=== PATIENT | female | born 1970 | race African-American/Black ===

== ENCOUNTER 2025-07-11 13:32 | Outpatient (CLI) | payer BC, SELFPAY ==
--- OUTSIDE RECORDS SUMMARY | 2025-07-11 13:34 | XMS_ITS | Clinical Summary ---
Author Organization [facility] Address [address] [place] [id number] Care Team Providers Care Supervisor Metal Furniture Assembly Name Role Phone Park Pool PA-C Primary Care Provider + [phone] Allergies Active Allergy Reactions Criticality Noted Date Comments Sulfamethoxazole-Trimet hoprim Other (See Comments) Low 09/11/2019 Shaking/Tremors Medications atorvastatin (LIPITOR) 20 mg tablet Take 20 mg by mouth. 0 Active traZODone (DESYREL) 50 mg tablet Take 50 mg by mouth daily at bedtime. 0 Active dulaglutide (Trulicity) 0.75 mg/0.5 mL injection INJECT 0.5 ML UNDER THE SKIN WEEKLY 1 Active losartan (COZAAR) 100 mg tablet Take 100 mg by mouth daily. 1 Active metFORMIN (GLUCOPHAGE) 500 mg tablet TAKE 1 TABLET(500 MG) BY MOUTH TWICE DAILY WITH MEALS 1 Active cyclobenzaprine (FLEXERIL) 5 mg Tablet Take 5 mg by mouth. 3 Active ergocalciferol (VITAMIN D2) 50,000 unit capsule TAKE 1 CAPSULE BY MOUTH 1 TIME A WEEK 3 Active fluticasone propionate (FLONASE) 50 mcg/spray [place], Suspension nasal inhaler Administer in each nostril daily. 2 Active omeprazole (PriLOSEC) 20 mg Capsule, Delayed Release(E.C.) Take 20 mg by mouth daily. 3 Active Active Problems Problem Noted Date Diagnosed Date Sciatica of right side 07/31/2023 Overview (10/03/2023): Last Assessment & Plan: History of sciatica Toradol 30 mg IM given today 40 mg Kenalog IM given today Flexeril as directed Naproxen as directed Ice, heat, rest Follow up with PCP if worsening or persistent Generalized anxiety disorder 10/01/2021 Overview (10/03/2023): Last Assessment & Plan: Chronic. Stable without medication. Continue to work on coping strategies. Class 2 severe obesity due t o excess calories with serious comorbidity and body mass index (BMI) of 36.0 to 36.9 in adult 12/16/2019 Overview (10/03/2023): Last Assessment & Plan: Chronic. Uncontrolled. BMI abnormal. Educated patient on healthy diet/exercise plan. Exercise 30 min at least 5 days per week of moderate intensity. Diet: good, healthy protein (eggs, nuts, peanut butter, chicken, fish, turkey, less pork/beef), lots of vegetables, less carbohydrates and less sugar. DM w/o complication type II 11/17/2016 Overview (10/03/2023): Last Assessment & Plan: Chronic. Controlled. Continue Trulicity and metformin Esophageal reflux 11/16/2016 Overview (10/03/2023): Last Assessment & Plan: Chronic. Controlled. Continue omeprazole, script sent today Insomnia 11/16/2016 Overview (10/03/2023): Last Assessment & Plan: Chronic. Stable. Continue trazodone Other allergic rhinitis 11/16/2016 Overview (10/03/2023): Last Assessment & Plan: Uncontrolled. Patient is having more congestion. Patient would like to see ENT Benign essential hypertension 05/04/2016 Overview (10/03/2023): Last Assessment & Plan: Chronic. Controlled. Continue losartan Mixed hyperlipidemia 05/04/2016 Overview (10/03/2023): Last Assessment & Plan: Chronic. Stable. Continue atorvastatin Vitamin D deficiency 05/04/2016 Overview (10/03/2023): Last Assessment & Plan: Chronic. Controlled. Continue vitamin-D supplement Immunizations Immunization Administration Dates Next Due INFLUENZA VACCINE QUADRIVALENT 6 MOS UP PF IM ,08/23/2022 Family History Medical History Relation Name Comments Diabetes Brother Diabetes Mother High Cholesterol Mother Hypertension Mother Stroke Mother Breast Cancer Sister Diabetes Sister Relation Name Status Comments Brother Mother Sister Social History Tobacco Use Types Packs/Day Years Used Date Smoking Tobacco: Never Tobacco Cessation:Counseling Given: Not Answered Alcohol Use Standard Drinks/Week Comments Not Currently 0 (1 standard drink = 0.6 oz pur e alcohol) Comments No Sex and Gender Information Value Date Recorded Sex Assigned at Not on file Legal Sex Female 7:42 AM CDT Gender Identity Not on file Sexual Orientation Not on file Last Filed Vital Signs Vital Sign Reading Time Taken Comments Blood Pressure 142/90 10/03/2023 10:37 AM RECONCILIATION SPECIALIST Pulse 89 10/03/2023 10:37 AM RECONCILIATION SPECIALIST Temperature 36.9 C (98.4 F) 10/03/2023 10:37 AM RECONCILIATION SPECIALIST Respiratory Rate 20 06/24/2021 10:40 AM CDT Oxygen Saturation 98% 10/03/2023 10:37 AM RECONCILIATION SPECIALIST Inhaled Oxygen Concentration - - Weight 93.2 kg (205 lb 6 oz) 10/03/2023 10:37 AM RECONCILIATION SPECIALIST Height 162.6 cm (5' 4) 10/03/2023 10:37 AM RECONCILIATION SPECIALIST Body Mass Index 35.25 10/03/2023 10:37 AM RECONCILIATION SPECIALIST Plan of Treatment Health Maintenance Due Date Last Done Comments DIABETES ANNUAL RETINAL EXAM 1987 DIABETES MICROALBUMIN ANNUAL SCREEN 1987 LDL CHOLESTEROL ANNUAL 1987 HEPATITIS B VACCINES (1 of 3 - 19+ 3-dose series) 1988 FIT-DNA Q 3 years 2014 FIT/FOBT Q 1 year 2014 Flex Sig/CT Colonography Q 5 years 2014 DTAP/TDAP/TD VACCINES (2 - T d or Tdap) 01/28/2023 01/28/2013, 11/27/2003 DIABETES HBA1C Q 6 MONTHS 06/09/2023 12/10/2022 DIABETES ANNUAL FOOT EXAM 01/16/2024 01/16/2023 BREAST CANCER SCREENING 07/04/2024 07/04/20, 07/04/2023, 06/30/2022, Additional history exists COVID-19 Vaccine (2023-2 5 season) 2024 01/18/2021, 12/28/2020 INFLUENZA VACCINE (#1) 2025 , 08/23/2022, 08/16/2021, Additional history exists COLORECTAL SCREENING 04/12/2031 04/12/2021, 04/12/20 Colorectal Cancer Screening 04/12/2031 ZOSTER VACCINE Completed 04/12/2022, 01/10/2022 Insurance [facility] BLUE ACCESS CHOICE [facility] BLUE ACCESS CHOICE Care Teams Supervisor Metal Furniture Assembly Relationship Specialty Start Date End Date Park Pool PA-C [address] [place] [address] PCP - General Physician Marketing Outreach Coordinator 04/14/20
--- OUTSIDE RECORDS SUMMARY | 2025-07-11 13:34 | XMS_ITS | Encounter Summary ---
Author Organization [facility] Address [address] [place] [address] Care Team Providers Care Neurosurgery Spine Physician Name Role Phone Park Pool Primary Care Provider [phone] Encounter Details Date Type Department Care Team (Late st Contact Info) Description 04/06/2021 Prep for Procedure [facility] [place], [place] [id number] Da Shannon MD [address] [phone] Social History Tobacco Use Types Packs/Day Years Used Date Smoking Tobacco: Never Smokeless Tobacco: Never Alcohol Use Standard Drinks/Week Comments Never 0 (1 standard drink = 0.6 oz pur e alcohol) Comments Unknown Sex and Gender Information Value Date Recorded Sex Assigned at Not on file Legal Sex Female 7:26 PM CDT Gender Identity Not on file Sexual Orientation Not on file COVID-19 Exposure Response Date Recorded In the last month, have you been in contact with someone who was confirmed or suspected to have Coronavirus / COVID-19? No / Unsure 04/06/2021 10:39 AM CDT documented as of this encounter Plan of Treatment Not on file documented as of this encounter Results * PRE-SURGICAL/PRE-PROCEDURE CORONAVIRUS (COVID 19) (04/09/2021 9:20 AM CDT) CORONAVIRUS SARS COV 2 PCR (RESP) NOT DETECTED NOT DETECTED 04/10/2021 7:41 PM CDT [facility] Comment: A Not Detected (negative) test result for this test means that SARS- CoV-2 RNA was not present in the specimen above the limit of detection. A negative result does not rule out the possibility of COVID-19 and should not be used as the sole basis for treatment or patient management decisions. If COVID-19 is still suspected, based on exposure history together with other clinical findings, re-testing should be considered in consultation with public health authorities. Laboratory test results should always be considered in the context of clinical observations and epidemiological data in making a final diagnosis and patient management decisions. Please review the Fact Sheets and FDA authorized labeling available for health care providers and patients using the following websites: [email or web address]/fact- sheet.html [email or web address]/Patients/ Quest[employer]D/fact-sheet.html This test has been authorized by the FDA under an Emergency Use Authorization (EUA) for use by authorized laboratories. Due to the current public health emergency, [facility] is receiving a high volume of samples from a wide variety of swabs and media for COVID-19 testing. In order to serve patients during this public health crisis, samples from appropriate clinical sources are being tested. Negative test results derived from specimens received in non-commercially manufactured viral collection and transport media, or in media and sample collection kits not yet authorized by FDA for COVID-19 testing should be cautiously evaluated and the patient potentially subjected to extra precautions such as additional clinical monitoring, including collection of an additional specimen. Methodology: Nucleic Acid Amplification Test (NAAT) includes RT-PCR or TMA Additional information about COVID-19 can be found at the [facility] website: [email or web address]. Test performed at [facility] [address] [place] [address] Director: NILS CONTE DO,MPH FIRST TEST UNKNOWN 04/09/2021 11:31 AM CDT [facility] EMPLOYED IN HEALTHCARE NO 04/09/2021 11:31 AM CDT [facility] SYMPTOMATIC DEFINED BY CDC UNKNOWN 04/09/2021 11:31 AM CDT [facility] DATE OF SYMPTOM ONSET =FASTING UNKNOWN 04/09/2021 12:30 PM CDT [facility] HOSPITALIZATION STATUS NO 04/09/2021 11:31 AM CDT [facility] PATIENT IN ICU NO 04/09/2021 11:31 AM CDT [facility] RESIDENT OF REPLACED BY [facility] NO 04/09/2021 11:31 AM CDT [facility] UNKNOWN 04/09/2021 11:31 AM CDT [facility] PATIENT'S RACE BLACK OR 04/09/2021 11:31 AM CDT [facility] ETHNICITY NONHISPANIC 04/09/2021 11:31 AM CDT [facility] SOURCE (QST) NASOPHARYNGEAL SWAB 04/09/2021 11:31 AM CDT [facility] NASOPHARYNGEAL SWAB / Unknown 04/09/2021 9:20 AM CDT us Ana Welch MD MICROBIOLOGY - GENERAL ORDERABLE S Final Result [facility] [address] [place] [address], [place] [phone] [facility] [id number] [place] [id number], documented in this encounter Visit Diagnoses Diagnosis Colon cancer screening- Primary Special screening for malignant neoplasms, colon documented in this encounter Additional Health Concerns Infection Onset Date Last Indicated Resolved Time COVID-19 Rule Out 04/09/2021 04/09/2021 04/10/2021 7:41 PM CDT documented as of this encounter Care Teams Neurosurgery Spine Physician Relationship Specialty Start Date End Date Park Pool PA [address] [place] [address] PCP - General 01/13/16 documented as of this encounter
--- OUTSIDE RECORDS SUMMARY | 2025-07-11 13:34 | XMS_ITS | Clinical Summary ---
Author Organization [facility] Address [address] [place] [address] Care Team Providers Care Non Acoustic Operator Name Role Phone Park Pool Primary Care Provider [phone] Allergies Active Allergy Reactions Criticality Noted Date Comments Sulfamethoxazole-Trimethoprim Shakiness 2020 Medications atorvastatin 20 MG tablet Take 2 tablets (40 mg total) by mouth. 0 Active traZODone 50 MG tablet Take 1 tablet (50 mg total) by mouth. 0 Active vitamin D3, cholecalciferol , 75 MCG (3000 UT) Tab tablet Take 5,000 Units by mouth daily. Active losartan 100 MG tablet Take 1 tablet (100 mg total) by mouth daily. Active omeprazole EC 20 MG tablet Take 1 tablet (20 mg total) by mouth daily. Active metFORMIN 500 MG tablet Take 1 tablet (500 mg total) by mouth 2 (two) times daily with meals. Active TRULICITY 0.75 MG/0.5ML injection ADMINISTER 0.75 MG UNDER THE SKIN WEEKLY Active naproxen (NAPROSYN) 500 MG tablet Take 1 tablet (500 mg total) by mouth. 3 Active Active Problems Problem Noted Date Diagnosed Date Lumbar radiculopathy 11/08/2023 Family History Medical History Relation Comments Diabetes Brother Hypertension Brother Diabetes Daughter Hypertension Daughter Diabetes Mother Hyperlipidemia Mother Hypertension Mother Stroke Mother Cancer Sister Relation Status Comments Brother Daughter Father Other Mother Alive Sister Social History Tobacco Use Types Packs/Day Years Used Date Smoking Tobacco: Never Smokeless Tobacco: Never Tobacco Cessation:Counseling Given: Not Answered Alcohol Use Standard Drinks/Week Comments Never 0 (1 standard drink = 0.6 oz pur e alcohol) Comments No Sex and Gender Information Value Date Recorded Sex Assigned at Not on file Legal Sex Female 7:26 PM CDT Gender Identity Not on file Sexual Orientation Not on file Last Filed Vital Signs Vital Sign Reading Time Taken Comments Blood Pressure 165/99 11/28/2023 4:08 PM OUTBOUND SUPERVISOR Pulse 92 11/28/2023 4:08 PM OUTBOUND SUPERVISOR Temperature 36.1 C (97 F) 11/28/2023 3:38 PM OUTBOUND SUPERVISOR Respiratory Rate 18 11/28/2023 4:08 PM OUTBOUND SUPERVISOR Oxygen Saturation 100% 11/28/2023 4:08 PM OUTBOUND SUPERVISOR Inhaled Oxygen Concentration - - Weight 93.4 kg (206 lb) 11/28/2023 3:38 PM OUTBOUND SUPERVISOR Height 162.6 cm (5' 4) 11/28/2023 3:38 PM OUTBOUND SUPERVISOR Body Mass Index 35.36 11/28/2023 3:38 PM OUTBOUND SUPERVISOR Plan of Treatment Health Maintenance Due Date Last Done Comments Annual Physical 1972 Hepatitis C 1987 Hepatitis B Vaccines (1 of 3 - 19+ 3-dose series) 1988 Mammogram Screening 2009 DTaP, Tdap and Td Vaccines ( 2 - Td or Tdap) 01/28/2023 01/28/2013, 11/27/2003 COVID-19 Vaccine (3 - 2023-2 5 season) 2024 01/18/2021, 12/28/2020 Colorectal Cancer Screening Colonoscopy (10 Years) 04/12/2031 04/12/2021, 04/12/2021 Zoster Vaccines Completed 04/12/2022, 01/10/2022 Pneumococcal Vaccine: 50+ Years Completed 01/16/2023, 12/14/2020 Meningococcal B Vaccine Aged Out No l onger eligible based on patient's age to complete this topic Meningococcal Vaccine Aged Out No tracy ryan eligible based on patient's age to complete this topic RSV Immunizations Under 20 Months Aged Out No longer eligible b ased on patient's age to complete this topic Medical Devices Implanted Type Area Lining Machine Operator Device Identifier Shelf Expiration Date Model / Serial / Lot Bilateral Knees Procedures Procedure Name Priority Date/Time Associated Diagnosis Comments COLONOSCOPY Routine 04/12/2021 11:25 AM CDT from Last 3 Months or Most Recently Relevant to Health Maintenance Insurance [employer] Care Teams Non Acoustic Operator Relationship Specialty Start Date End Date Park Pool PA [address] [facility] [place] [phone] PCP - General 01/13/16
--- OUTSIDE RECORDS SUMMARY | 2025-07-11 13:35 | XMS_ITS | Clinical Summary ---
Author Organization [facility] Address [address] [place] [address] Care Team Providers Care Applied Computer Science Professor Name Role Phone Park Pool Primary Care Provider [phone] Dex Wooten MD Unavailable [phone] Allergies Active Allergy Reactions Criticality Noted Date Comments Sulfamethoxazole-Trimet hoprim Other (See comments) Low 09/11/2019 Shaking/Tremors Medications omega-3 fatty acids-fish oil 300-1,000 mg capsule 1 capsule (1,000 mg total) daily Active blood-glucose meter miscIndications:Ty pe 2 diabetes mellitus without complication, without long-term current use of insulin (HCC) Testing BID. New DX: DM. Testing BID due to hyperglycemia and hypoglycemia 1 each 12/16/19 Active blood glucose diagnostic (glucose blood) stripIndications:T ype 2 diabetes mellitus without complication, without long-term current use of insulin (HCC) Testing BID. Testing due to hyperglycemia and hypoglycemia. 100 each 12/16/19 20 Active lancets miscIndications:Ty pe 2 diabetes mellitus without complication, without long-term current use of insulin (HCC) Testing BID. Testing due to hyperglycemia and hypoglycemia. 100 each 12/16/19 20 Active alcohol swabs pads, medicatedIndicatio ns:Type 2 diabetes mellitus without complication, without long-term current use of insulin (HCC) Testing BID. Testing due to hyperglycemia and hypoglycemia. 100 each 01/10/20 22 Active traZODone (DESYREL) 50 mg tabletIndications: Primary insomnia Take 1 tablet (50 mg total) by mouth nightly 90 tablet 1 01/10/20 22 Active omeprazole OTC (PriLOSEC OTC) 20 mg EC tabletIndications: Gastroesophageal reflux disease without esophagitis Take 1 tablet (20 mg total) by mouth daily 90 tablet 1 01/10/20 22 Active ibuprofen (ADVIL,MOTRIN) 600 mg tablet Take 1 tablet (600 mg total) by mouth 3 (three) times a day 21 tablet 01/16/20 23 Active fluticasone propionate (FLONASE) 50 mcg/actuation nasal sprayIndications:E TD (Eustachian tube dysfunction), bilateral,Acute non-recurrent maxillary sinusitis Administer 2 sprays into each nostril daily 16 g 3 12/15/19 24 Active atorvastatin (LIPITOR) 40 mg tabletIndications: Mixed hyperlipidemia Take 1 tablet (40 mg total) by mouth daily 90 tablet 3 01/30/20 25 Active losartan (COZAAR) 100 mg tabletIndications: Benign essential hypertension TAKE 1 TABLET(100 MG) BY MOUTH DAILY 90 tablet 01/31/20 25 Active ergocalciferol (VITAMIN D) 50,000 unit capsuleIndications :Vitamin D deficiency TAKE 1 CAPSULE BY MOUTH 1 TIME A WEEK 12 capsule 3 02/25/20 25 Active semaglutide (Ozempic) 1 mg/dose (4 mg/3 mL) pen injector injectionIndicatio ns:Type 2 diabetes mellitus without complication, without long-term current use of insulin (HCC) INJECT 1MG UNDER THE SKIN ONCE WEEKLY 9 mL 1 03/15/20 25 Active amLODIPine (NORVASC) 5 mg tabletIndications: Benign essential hypertension TAKE 1 TABLET(5 MG) BY MOUTH DAILY 100 tablet 1 03/15/20 25 Active Active Problems Problem Noted Date Diagnosed Date Generalized anxiety disorder 10/01/2021 Assessment & Plan (01/29/2024 1:28 PM INTERNET MARKETING ANALYST): Stable, no meds at this time, using an anxiety apps to help with symptoms Assessment & Plan (01/16/2023 9:18 AM INTERNET MARKETING ANALYST): Chronic. Stable without medication. Continue to work on coping strategies. Assessment & Plan (01/10/2022 8:04 AM INTERNET MARKETING ANALYST): Stable, no meds at this time Assessment & Plan (10/01/2021 8:49 AM CDT): New issue: Discuss treatment options with patient. Patient was to continue her trazodone for good sleep. Sleeping well helps with her anxiety. Paperwork filled out for work to continue working from home to help with her anxiety Class 2 severe obesity due t o excess calories with serious comorbidity and body mass index (BMI) of 36.0 to 36.9 in adult 12/16/2019 Assessment & Plan (01/29/2025 11:36 AM INTERNET MARKETING ANALYST): Educated patient on healthy diet/exercise plan. Exercise 150min-300min per week of moderate intensity. Diet: good, healthy protein (eggs, nuts, peanut butter, chicken, fish, turkey, less pork/beef), lots of vegetables, less carbohydrates and less sugar. Uncontrolled Assessment & Plan (05/06/2024 7:57 AM CDT): Educated patient on healthy diet/exercise plan. Exercise 150min-300min per week of moderate intensity. Diet: good, healthy protein (eggs, nuts, peanut butter, chicken, fish, turkey, less pork/beef), lots of vegetables, less carbohydrates and less sugar. Assessment & Plan (04/03/2024 11:25 AM CDT): Educated patient on healthy diet/exercise plan. Exercise 150min-300min per week of moderate intensity. Diet: good, healthy protein (eggs, nuts, peanut butter, chicken, fish, turkey, less pork/beef), lots of vegetables, less carbohydrates and less sugar. Assessment & Plan (01/29/2024 1:28 PM INTERNET MARKETING ANALYST): Uncontrolled: Goal of BMI is less than 30 Educated patient on healthy diet/exercise plan. Exercise 150min-300min per week of moderate intensity. Diet: good, healthy protein (eggs, nuts, peanut butter, chicken, fish, turkey, less pork/beef), lots of vegetables, less carbohydrates and less sugar. Assessment & Plan (01/16/2023 9:18 AM INTERNET MARKETING ANALYST): Chronic. Uncontrolled. BMI abnormal. Educated patient on healthy diet/exercise plan. Exercise 30 min at least 5 days per week of moderate intensity. Diet: good, healthy protein (eggs, nuts, peanut butter, chicken, fish, turkey, less pork/beef), lots of vegetables, less carbohydrates and less sugar. Assessment & Plan (01/10/2022 8:04 AM INTERNET MARKETING ANALYST): Uncontrolled. Goal of BMI is less than 30 Patient has joined weight watchers Educated patient on healthy diet/exercise plan. Exercise 150min-300min per week of moderate intensity. Diet: good, healthy protein (eggs, nuts, peanut butter, chicken, fish, turkey, less pork/beef), lots of vegetables, less carbohydrates and less sugar. Assessment & Plan (12/14/2020 11:09 AM INTERNET MARKETING ANALYST): Educated patient on healthy diet/exercise plan. Exercise 150min-300min per week of moderate intensity. Diet: good, healthy protein (eggs, nuts, peanut butter, chicken, fish, turkey, less pork/beef), lots of vegetables, less carbohydrates and less sugar. Assessment & Plan (08/28/2020 8:08 AM CDT): Educated patient on healthy diet/exercise plan. Exercise 150min-300min per week of moderate intensity. Diet: good, healthy protein (eggs, nuts, peanut butter, chicken, fish, turkey, less pork/beef), lots of vegetables, less carbohydrates and less sugar. Assessment & Plan (05/22/2020 2:53 PM CDT): Educated patient on healthy diet/exercise plan. Exercise 150min-300min per week of moderate intensity. Diet: good, healthy protein (eggs, nuts, peanut butter, chicken, fish, turkey, less pork/beef), lots of vegetables, less carbohydrates and less sugar. Assessment & Plan (12/16/2019 8:10 AM INTERNET MARKETING ANALYST): Educated patient on healthy diet/exercise plan. Exercise 150min-300min per week of moderate intensity. Diet: good, healthy protein (eggs, nuts, peanut butter, chicken, fish, turkey, less pork/beef), lots of vegetables, less carbohydrates and less sugar. Health maintenance examination 12/11/2019 Overview (01/31/2025): PMH: 01/29/24 Last pap: 12/16/2019- request records Dr. Morrison Last mammogram: 07/05/24 Last dexa: 06/30/2022 normal Last colonoscopy/cologuard: 04/12/21 due in Last tdap: 01/29/2024 Last hep b: completed thru work Last Prevnar/pneumovax: 01/16/2023 Last Shingrix: completed Last eye exam: 01/2025 Assessment & Plan (01/29/2024 1:10 PM INTERNET MARKETING ANALYST): PMH: 01/29/24 Last pap: 12/16/2019- request records Dr. Morrison Last mammogram: 07/04/23 Last dexa: 06/30/2022 normal Last colonoscopy/cologuard: 04/12/21 due in Last tdap: 01/29/2024 Last hep b: completed thru work Last Prevnar/pneumovax: 01/16/2023 Last Shingrix: completed Last eye exam: 07/2022 Assessment & Plan (01/16/2023 9:12 AM INTERNET MARKETING ANALYST): Last pap:09/2018, 12/16/2019- request records Dr. Morrison Last mammogram: 04/2016, 05/2021, 06/2022 Last dexa: 06/30/2022 normal Last colonoscopy/cologuard: 04/12/21 due in Last tdap: 01/28/2013 - Due - she will return Last hep b: completed thru work Last Prevnar/pneumovax: pneumovax (23) 12/14/2020, 01/16/2023 Last Shingrix: 01/10/2022 Last eye exam:05/12/2018, 08/04/2020, 09/28/21, 07/2022 Assessment & Plan (01/10/2022 7:46 AM INTERNET MARKETING ANALYST): PMH: 01/10/2022 Last pap:09/2018, 12/16/2019 Last mammogram: 04/2016, 05/2021 Last dexa: Last colonoscopy/cologuard: 04/12/21 due in 30 Last tdap: 01/28/2013 Last hep b: completed thru work Last Prevnar/pneumovax: pneumovax (23) 12/14/2020 Last Shingrix: 01/10/2022 Last eye exam:05/12/2018, 08/04/2020, 09/28/21 Assessment & Plan (12/14/2020 8:13 AM INTERNET MARKETING ANALYST): PMH: 12/14/2020 Last pap:09/2018, 12/16/2019 Last mammogram: 04/2016 (ordered) Last dexa: Last colonoscopy/cologuard: Referral placed 11/2020 Last tdap: 01/28/2013 Last hep b: completed thru work Last Prevnar/pneumovax: pneumovax (23) 12/14/2020 Last Shingrix: info given Last eye exam:05/12/2018, 08/04/2020 Assessment & Plan (12/16/2019 7:39 AM INTERNET MARKETING ANALYST): PMH: 12/16/2019 Last pap:09/2018, 12/16/2019 Last mammogram: 04/2016 (ordered) Last dexa: Last colonoscopy/cologuard: Referral placed 11/2019 Last tdap: 01/28/2013 Last hep b: completed thru work Last Prevnar/pneumovax: info given Last Shingrix: info given Last eye exam:05/12/2018, due DM w/o complication type II 11/17/2016 Assessment & Plan (01/29/2025 11:36 AM INTERNET MARKETING ANALYST): Chronic, stable, continue Ozempic at the current dose. Repeat A1c. Pending results we may try to increase dosage of medication Assessment & Plan (05/06/2024 8:30 AM CDT): Current A1c 6.4. Controlled. Patient will continue metformin and Ozempic. Will increase Ozempic to 1 mg. If patient has any low sugar reactions we will stop the metformin. Follow-up in July Assessment & Plan (04/03/2024 11:24 AM CDT): Stable, patient will continue metformin. Repeat A1c Assessment & Plan (01/29/2024 1:27 PM INTERNET MARKETING ANALYST): Stable, hemoglobin A1c at 6.5. Patient will continue current meds. We will consider switching patient to Ozempic wants the supply has improved. Requested eye exam report. Foot exam normal today. Order labs Assessment & Plan (11/13/2023 3:27 PM INTERNET MARKETING ANALYST): Due for hemoglobin A1c. Patient counseled that prednisone will increase her sugar level so she needs to monitor her sugars closely and also really follow a strict diabetic diet while on the prednisone Assessment & Plan (01/16/2023 9:18 AM INTERNET MARKETING ANALYST): Chronic. Controlled. Continue Trulicity and metformin Assessment & Plan (01/10/2022 8:04 AM INTERNET MARKETING ANALYST): Controlled. A1c at 6.1 Foot exam completed today. Eye exam up-to-date. Continue current meds. Work on dietary changes and weight loss. Follow-up in 6 months Assessment & Plan (08/16/2021 4:07 PM CDT): Stable, continue current meds. Continue diabetic diet. Eye exam is due. Order labs. Follow-up in November Assessment & Plan (12/14/2020 11:10 AM INTERNET MARKETING ANALYST): Ordered A1c. Patient will continue meds. Continue checking sugars at home. Check feet daily. Eye exam up-to-date. Assessment & Plan (08/28/2020 8:09 AM CDT): Controlled. Patient will continue current meds. Continue diet, exercise, and weight loss. Patient will continue to check her feet daily. Follow-up in November Assessment & Plan (05/22/2020 2:54 PM CDT): Uncontrolled. Plan patient will add metformin 500 mg b.i.d. after 6-7 days if patient is having no side effects from the metformin she is going to stop the glyburide and start Trulicity. Patient will check her sugars daily in the morning and report numbers weekly. Pending numbers we may then increase metformin to a 1000 b.i.d.. Patient will work on diabetic diet and exercise. Patient/parent was counseled on medication risk, side effects, and possible complications. Patient/parent was counseled on how to properly take the medication and to call with any adverse reactions. Patient/parent stated understanding. Repeat A1c in 3months. Assessment & Plan (12/16/2019 8:10 AM INTERNET MARKETING ANALYST): Stable, continue meds, work on diabetic diet and exercise. Work on a 5 lb weight loss. Patient due for eye exam. Info given on Pneumovax 23. Ordered labs Esophageal reflux 11/16/2016 Assessment & Plan (01/29/2024 1:27 PM INTERNET MARKETING ANALYST): Stable, continue Prilosec Assessment & Plan (01/16/2023 9:18 AM INTERNET MARKETING ANALYST): Chronic. Controlled. Continue omeprazole, script sent today Assessment & Plan (01/10/2022 8:04 AM INTERNET MARKETING ANALYST): Stable, continue Prilosec Assessment & Plan (08/16/2021 4:07 PM CDT): Stable, continue current meds Assessment & Plan (12/14/2020 11:10 AM INTERNET MARKETING ANALYST): Stable continue meds Assessment & Plan (12/16/2019 8:10 AM INTERNET MARKETING ANALYST): Stable on [id number] meds. Counseled patient on prolonged use of PPIs Insomnia 11/16/2016 Assessment & Plan (01/29/2024 1:27 PM INTERNET MARKETING ANALYST): Stable, continue trazodone as needed Assessment & Plan (01/16/2023 9:19 AM INTERNET MARKETING ANALYST): Chronic. Stable. Continue trazodone Assessment & Plan (01/10/2022 8:04 AM INTERNET MARKETING ANALYST): Stable, continue meds Assessment & Plan (10/01/2021 8:49 AM CDT): Stable, continue current meds Assessment & Plan (08/16/2021 4:07 PM CDT): Stable, continue current Assessment & Plan (12/14/2020 11:10 AM INTERNET MARKETING ANALYST): Stable continue meds Assessment & Plan (12/16/2019 8:11 AM INTERNET MARKETING ANALYST): Stable on meds Other allergic rhinitis 11/16/2016 Assessment & Plan (01/29/2024 1:27 PM INTERNET MARKETING ANALYST): Stable, continue allergy meds Assessment & Plan (01/10/2022 8:04 AM INTERNET MARKETING ANALYST): Uncontrolled. Patient is having more congestion. Patient would like to see ENT Assessment & Plan (12/14/2020 11:10 AM INTERNET MARKETING ANALYST): Stable continue p.r.n. meds Assessment & Plan (12/16/2019 8:11 AM INTERNET MARKETING ANALYST): Stable owhd-[id number] allergy meds as needed Benign essential hypertension 05/04/2016 Assessment & Plan (01/29/2025 11:36 AM INTERNET MARKETING ANALYST): Chronic, uncontrolled. Continue current meds at amlodipine and losartan. Patient will report blood pressure readings to us in 1 week. If not controlled will increase the amlodipine to 10 mg Assessment & Plan (07/04/2024 3:42 PM CDT): Blood pressure elevated. This may be due to illness and use of [id number] medication. Advised patient to increase the amlodipine from 5 mg to 10 mg daily, likely temporarily. She will continue monitoring her blood pressure at home, and as she feels better and blood pressure hopefully returns to normal she can resume her 5 mg dose daily. Assessment & Plan (05/06/2024 8:29 AM CDT): Improving. Patient will continue with current meds. Recommend patient try Coricidin for sinus congestion to reduce the risk of elevated blood pressure Assessment & Plan (04/03/2024 11:24 AM CDT): Uncontrolled. Patient will continue with losartan 100 mg daily and will add Norvasc 5 mg daily. Patient will monitor blood pressure at home and report numbers in 2 weeks. Follow-up visit in office in 4 weeks. Order labs Assessment & Plan (01/29/2024 1:26 PM INTERNET MARKETING ANALYST): Uncontrolled. But patient take a decongestant before her visit. Patient return to clinic in the next 1-2 weeks for repeat blood pressure check, if blood pressure continues to be elevated we will add Norvasc 2.5 mg Assessment & Plan (01/16/2023 9:17 AM INTERNET MARKETING ANALYST): Chronic. Controlled. Continue losartan Assessment & Plan (01/10/2022 8:03 AM INTERNET MARKETING ANALYST): Stable, continue current meds. Follow-up in 6 months Assessment & Plan (08/16/2021 4:07 PM CDT): Stable, continue current meds. Order labs. Follow-up in November Assessment & Plan (12/14/2020 11:09 AM INTERNET MARKETING ANALYST): Uncontrolled. Patient did not take her meds today. Patient will return on or Monday for repeat blood pressure check. Recommend patient take her meds at least 1 hour before her appointment. Pending repeat blood pressure check will decide next step. Work on low-sodium diet, exercise, weight loss Assessment & Plan (08/28/2020 8:08 AM CDT): Borderline today. Patient will check her blood pressure at home every day for the next week and report her numbers through my chart Assessment & Plan (05/22/2020 2:52 PM CDT): Elevated today. Patient return to clinic in 2 weeks for recheck blood pressure Assessment & Plan (12/16/2019 8:10 AM INTERNET MARKETING ANALYST): Images from the original note were not included. Stable, continue meds. Ordered labs. Patient informed the lab/xray results will be sent to the [facility]. They are to log in and view the results and any notes/messages/plans/orders. They should call the office with any questions. Mixed hyperlipidemia 05/04/2016 Assessment & Plan (01/29/2025 11:36 AM INTERNET MARKETING ANALYST): Chronic, stable, continue Lipitor Assessment & Plan (04/03/2024 11:24 AM CDT): Stable, continue Lipitor. Order labs Assessment & Plan (01/29/2024 1:27 PM INTERNET MARKETING ANALYST): Stable, continue Lipitor Assessment & Plan (01/16/2023 9:19 AM INTERNET MARKETING ANALYST): Chronic. Stable. Continue atorvastatin Assessment & Plan (01/10/2022 8:04 AM INTERNET MARKETING ANALYST): Stable, continue meds Assessment & Plan (08/16/2021 4:07 PM CDT): Stable, continue current meds. Order labs. Follow-up in November Assessment & Plan (12/14/2020 11:10 AM INTERNET MARKETING ANALYST): Stable continue meds Assessment & Plan (08/28/2020 8:09 AM CDT): Stable, continue meds Assessment & Plan (05/22/2020 2:54 PM CDT): Heart risk is elevated. Increase Lipitor from 20 mg to 40 mg. Repeat labs in 3 months Assessment & Plan (12/16/2019 8:11 AM INTERNET MARKETING ANALYST): Stable on meds, due for labs. Pending labs will relook at the ASCVD score Vitamin D deficiency 05/04/2016 Assessment & Plan (04/03/2024 11:25 AM CDT): Stable, continue vitamin-D. Order labs Assessment & Plan (01/29/2024 1:27 PM INTERNET MARKETING ANALYST): Stable, continue vitamin-D Assessment & Plan (01/16/2023 9:19 AM INTERNET MARKETING ANALYST): Chronic. Controlled. Continue vitamin-D supplement Assessment & Plan (01/10/2022 8:05 AM INTERNET MARKETING ANALYST): Continue vitamin-D, will switch patient to the weekly med Assessment & Plan (12/14/2020 11:10 AM INTERNET MARKETING ANALYST): Stable continue vitamins Assessment & Plan (08/28/2020 8:09 AM CDT): Improved, continue vitamin-D Assessment & Plan (05/22/2020 2:55 PM CDT): Uncontrolled. Patient will restart vitamin-D 5000 units daily and repeat labs in 3 months Assessment & Plan (12/16/2019 8:11 AM INTERNET MARKETING ANALYST): Stable continue vitamin-D Resolved Problems Problem Noted Date Diagnosed Date Resolved Date Severe obesity 01/29/2025 01/29/2025 Sciatica of right side 07/31/202301/28 Assessment & Plan (07/31/2023 6:55 PM CDT): History of sciatica Toradol 30 mg IM given today 40 mg Kenalog IM given today Flexeril as directed Naproxen as directed Ice, heat, rest Follow up with PCP if worsening or persistent Acute recurrent maxillary sinusitis 09/11/2019 12/11/2019 Assessment & Plan (09/11/2019 5:03 PM CDT): Start Augmentin twice daily for 10 days. Increase clear liquids, vitamin C, and rest. If symptoms worsen or fail to improve, or new symptoms develop, follow-up with PCP. Eustachian tube dysfunction, bilateral 09/11/2019 12/11/2019 Assessment & Plan (09/11/2019 5:05 PM CDT): Start Flonase 2 sprays each nostril once day. Use Tylenol PRN for discomfort. Asthma in adult 11/16/2016 12/16/2019 Immunizations Immunization Administration Dates Next Due Influenza, Quadrivalent, Cyndie l Culture-based MDCK, Preservative Free, Antibiotic Free, Intramuscular 08/19/2020 Influenza, Quadrivalent, Spl it, Intramuscular 08/27/2018 Influenza, Quadrivalent, Spl it, Preservative Free, Intramuscular 08/09/2023,08/23/2022,08/16/2021,09/16 Influenza, Trivalent, IM (MDV) 08/28/2015 Influenza, Trivalent, Preser vative Free, Intramuscular 08/18/2024 Influenza, Unspecified 08/19/2020,09/02/2019 Pfizer SARS-CoV-2 Monovalent Vaccination (12+ Yrs) PURPLE 01/18/2021,12/28/2020 Pneumococcal Conjugate Pcv20 01/16/2023 Pneumococcal Polysaccharide PPV23 12/14/2020 TD Preservative Free 11/27/2003 Tdap 01/29/2024,01/28/2013 ZOSTER Recombinant 04/12/2022,01/10/2022 Surgical History Surgery Date Site/Laterality Comments REPLACEMENT TOTAL KNEE BILATERAL 11/27/2013 - 11/26/2014 SINUS SURGERY KNEE ARTHROSCOPY 11/27/2011 - 11/26/2012 Right meniscus tear KNEE ARTHROSCOPY 07/28/2015 - 08/26/2015 Left OOPHERECTOMY 11/27/2010 - 12/27/2010 HYSTERECTOMY 11/27/2000 - 11/26/2001 partial, ovaries remain OOPHORECTOMY 11/27/2003 - 11/26/2004 Bilateral Medical History Medical History Date Comments Type 2 diabetes mellitus Insomnia Esophageal reflux Essential hypertension Mixed hyperlipidemia Vitamin D deficiency Asthma in adult 11/16/2016 Benign essential hypertension 05/04/2016 DM w/o complication type II (HCC) 11/17/2016 Blake palsy Family History Medical History Relation Name Comments Diabetes Half-Brother 2 Breast cancer Half-Sister 2 Diabetes Mother Hyperlipidemia Mother Stroke Mother Relation Name Status Comments Father Unknown Half-Brother 1 Alive Half-Brother 2 Alive Half-Brother 3 Alive Half-Brother 4 Alive Half-Sister 1 Alive Half-Sister 2 Alive Half-Sister 3 Alive Mother Alive Social History Tobacco Use Types Packs/Day Years Used Date Smoking Tobacco: Never Smokeless Tobacco: Never Tobacco Cessation:Counseling Given: Not Answered Alcohol Use Standard Drinks/Week Comments Yes 0 (1 standard drink = 0.6 oz pur e alcohol) socially AUDIT-C Answer Date Recorded Q1: How often do you have a drink containing alc ohol? Monthly or less 01/16/2023 Q2: How many drinks containi ng alcohol do you have on a typical day when you are drinking? 1 or 2 01/16/2023 Q3: How often do you have si x or more drinks on one occasion? Never 01/16/2023 PHQ-2 Answer Date Recorded PHQ-2 Total Score (If total score is 3 or more points, staff should administer the PHQ-9) 0 01/29/2025 PHQ-9 Answer Date Recorded PHQ-9 Total Score 9 04/03/2024 Comments No Sex and Gender Information Value Date Recorded Sex Assigned at Not on file Legal Sex Female 2:01 PM INTERNET MARKETING ANALYST Gender Identity Female 12/17/2023 5:07 PM INTERNET MARKETING ANALYST Sexual Orientation Straight 12/17/2023 5: 07 PM INTERNET MARKETING ANALYST Obstetrics History Para Term AB IAB SAB Ectopic Multiple Livin g Live Births 2 2 2 Date Outcome GA Total Labor Labor/2nd/3rd Weight Sex Type Anes PTL Halley A1 A5 Name Clin Term Term Last Filed Vital Signs Vital Sign Reading Time Taken Comments Blood Pressure 162/82 01/29/2025 10:08 AM INTERNET MARKETING ANALYST Pulse 115 01/29/2025 10:08 AM INTERNET MARKETING ANALYST Temperature 36.4 C (97.5 F) 01/29/2025 10:08 AM INTERNET MARKETING ANALYST Respiratory Rate 16 01/29/2025 10:08 AM INTERNET MARKETING ANALYST Oxygen Saturation 98% 01/29/2025 10:08 AM INTERNET MARKETING ANALYST Inhaled Oxygen Concentration - - Weight 95.4 kg (210 lb 6.4 oz) 01/29/2025 10:08 AM INTERNET MARKETING ANALYST Height 162.6 cm (5' 4) 01/29/2025 10:08 AM INTERNET MARKETING ANALYST Body Mass Index 36.12 01/29/2025 10:08 AM INTERNET MARKETING ANALYST Plan of Treatment Health Maintenance Due Date Last Done Comments Hepatitis C Screening 1969 Hepatitis B Screening 1987 Regular Well Visit/Exam 18-64 01/28/2025, 01/16/2023, 01/10/2022, Additional history exists Albumin Creatinine Ratio, Urine 05/01/2025 05/01/2024, 03/10/2023, 11/24/2021, Additional history exists Lipid Panel 05/01/2025 05/01/2024, 02/25, 11/24/2021, Additional history exists eGFR 05/01/2025 05/01/2024, 02/25, 11/24/2021, Additional history exists Breast Cancer Screening-Mammogram 07/05/2025 07/05/2024, 07/04/2023, 07/04/2023, Additional history exists Influenza Vaccine (#1) 2025 , 08/09/2023, 08/23/2022, Additional history exists Hemoglobin A1C 08/01/2025 01/29/2025, 06/0 03/2024, 01/26/2024, Additional history exists Depression Screening 01/29/2026 01/29/2025, 07/04/2024, 05/06/2024, Additional history exists Dilated Eye Exam 01/29/2026 01/29/2025, 07/2024, 08/02/2022, Additional history exists Foot Exam 01/29/2026 01/29/2025, 03/0 02/2024, 01/16/2023, Additional history exists Colon Cancer Screening-Colonoscopy 04/12/2031 04/12/2021 DTaP/Tdap/Td Vaccine (3 - Td or Tdap) 01/28/2034 01/29/2024, 01/28/2013, 11/27/2003 Colon Cancer Screening-CT Colonography Discontinued 04/12/2021 Colon Cancer Screening-DNA Stool Discontinued 05/17/20 21 Colon Cancer Screening-FIT Discontinued 04/12/2021 Colon Cancer Screening-Sigmoidoscopy Discontinued 04/12/2021 Zoster Vaccine Completed 04/12/2022, 01/10/2022 Pneumococcal vaccine <65 Completed 01/16/2023, 11/27 Cervical Cancer Screening Discontinued 2022, 01/19/2022, 09/27/2018 Covid-19 Vaccine Completed 08/18/2024, 08/2023, 08/17/2022, Additional history exists Procedures Procedure Name Priority Date/Time Associated Diagnosis Comments HEMOGLOBIN A1C Routine 01/29/2025 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 Type 2 diabetes mellitus without complication, without long-term current use of insulin (HCC) DIABETES EYE EXAM Routine 01/29/2025 SCREENING MAMMOGRAM BILATERAL W DOUGLAS Schedule Routine, Read Routine (OP Routine) 07/05/2024 11:51 AM CDT Screening mammogram for breast cancer ALBUMIN CREATININE RATIO, URINE Routine 05/01/2024 8:15 AM CDT Benign essential hypertension Class 2 severe obesity due to excess calories with serious comorbidity and body mass index (BMI) of 35.0 to 35.9 in adult (HCC) Type 2 diabetes mellitus without complication, without long-term current use of insulin ([facility]) Mixed hyperlipidemia Vitamin D deficiency Health maintenance examination EGFR Routine 05/01/2024 8:13 AM CDT Benign essential hypertension Class 2 severe obesity due to excess calories with serious comorbidity and body mass index (BMI) of 35.0 to 35.9 in adult (HCC) Type 2 diabetes mellitus without complication, without long-term current use of insulin (HCC) Mixed hyperlipidemia Vitamin D deficiency Health maintenance examination LIPID PANEL Routine 05/01/2024 8:13 AM CDT Benign essential hypertension Class 2 severe obesity due to excess calories with serious comorbidity and body mass index (BMI) of 35.0 to 35.9 in adult (HCC) Type 2 diabetes mellitus without complication, without long-term current use of insulin ([facility]) Mixed hyperlipidemia Vitamin D deficiency Health maintenance examination HM PAP SMEAR Routine 05/24/2023 COLONOSCOPY Routine 04/12/2021 from Last 3 Months or Most Recently Relevant to Health Maintenance Results * (ABNORMAL) Hemoglobin A1c (01/29/2025 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) Hgb A1C 6.5(H) 4.0 - 5.6 % Comment:Testing performed by : [facility], [address] [place] [address]., [id number] Estimated Average Glucose 140 mg/dL DAVID LAND Comment: The ADA recommends reporting an estimated Average Glucose (eAG) with all Hemoglobin A1c results using the equation derived from a study of 507 normal and diabetic adults. Minority populations were underrepresented and children were not included. (Diabetes Care 31:2301-5704, 2008). The eAG is not equivalent to a fasting glucose. Testing performed by: [facility], [address] [place] [address]., [id number] Blood 01/29/2025 10:5 5 AM INTERNET MARKETING ANALYST 01/29/2025 12:02 PM INTERNET MARKETING ANALYST Park [facility] BLOOD ORDERABLES Final Res ult DAVID [address] [facility] Department [place] [address] * DIABETES EYE EXAM (01/29/2025) SCRIBED DIABETIC DILATED EYE EXAM Normal Historical Provider HEALTH MAINTENANCE Edited Result - Final * Screening Mammogram Bilateral W Douglas (07/05/2024 11:51 AM CDT) Anatomical Region Laterality Modality Breast Bilateral Mammography Impressions 07/05/2024 12:01 PM CDT BI-RADS ATLAS category (overall): 1 - Negative There is no mammographic evidence of malignancy. A 1 year screening mammogram is recommended. The patient has been or will be contacted. We recommend annual screening mammography for women at average risk of breast cancer beginning at age 40, based on guidelines of the [place] [employer] (ACR Practice Parameter for the Performance of Screening and Diagnostic Mammography) and [place] [employer]. For women with and elevated risk of breast cancer, please refer to the ACR Practice Parameter for specific screening recommendations. The patient will be entered into a reminder system with a target due date of 1 year for her next screening exam. Narrative 07/05/2024 12:01 PM CDT Screening Mammogram Bilateral W Douglas: 07/05/24 The study was acquired using full field digital technology and interpreted from soft copy. 2D digital mammographic views, as well as 3D digital tomosynthesis were performed in the CC and MLO projections. CLINICAL: Screening mammogram for breast cancer. No relevant medical history has been documented for this patient. History of breast cancer in [facility]. COMPARISONS: 07/04/2023 Screening Mammogram Bilateral W Douglas 06/30/2022 Screening Mammogram Bilateral W Douglas 06/15/2021 Screening Mammogram Bilateral W Douglas 12/21/2019 Screening Mammogram 2D Bilateral 10/15/2018 Screening Mammogram 2D Bilateral BREAST TISSUE: The breasts have scattered areas of fibroglandular density. FINDINGS: No suspicious masses, suspicious calcifications, or other suspicious findings are seen within either breast. There has been no suspicious change. Park G[facility] IMG MAMMO PROCEDURES Final Res ult * Albumin Creatinine Ratio, Urine (05/01/2024 8:15 AM CDT) Albumin Ur 19.5 mg/L Comment: Interpretive Data No reference range established. Current interpretive data was last revised 2019. Testing performed by: [address] [address] Creatinine Ur 424.8 mg/dL DAVID Comment: Interpretive Data No reference range established. Current interpretive data was last revised 2019. Testing performed by: [address] [address] Albumin Creatinine Ratio, Ur 5 1 - 29 mg/g DAVID Comment:Testing performed by : [address] [address] Urine 05/01/2024 8:15 AM CDT 05/01/2024 1:42 PM CDT Park [facility] URINE ORDERABLES Final Res ult Performing Organization Address [facility] Co de Phone Number DAVID [address] [employer] [place] [address] * eGFR (05/01/2024 8:13 AM CDT) eGFR 88 >=60 mL/min/1. 73 m2 Comment: Interpretive Data Reference Interval Normal >/= 90 mL/min/1.73m2 Mildly decreased* 60 - 89 mL/min/1.73m2 Mildly to moderately decreased 45 - 59 mL/min/1.73m2 Moderately to severely decreased 30 - 44 mL/min/1.73m2 Severely decreased 15 - 29 mL/min/1.73m2 Kidney Failure < 15 mL/min/1.73m2 *Relative to young adult level Estimated glomerular filtration rate is determined by the 2020 CKD-EPI equation recommended by the National Kidney Foundation (A Unifying Approach to GFR Estimation: Recommendations of the NKF-ASK Task Force on Reassessing the Inclusion of Race in Diagnosing Kidney Disease, JASN 2020). The CKD-EPI equation should not be used for patients with unstable renal function and has not been validated in children and those over 70. Current interpretive data was last reviewed 2021. Testing performed by: [facility], [address] [place] [address]., [address] Blood 05/01/2024 8:13 AM CDT 05/01/2024 12:51 PM CDT Park [facility] BLOOD ORDERABLES Final Res ult Performing Organization Address City/[facility]/ZIP Co de Phone Number DAVID [facility] [place] [address] * Lipid panel (05/01/2024 8:13 AM CDT) Cholesterol 149 30 - 199 mg/dL Comment: Interpretive Data Ages < or = 19 years Acceptable: <170 mg/dL Borderline high: 170-199 mg/dL High: >or= 200 mg/dL Ages > or = 20 years Desirable: <200 mg/dL Borderline high: 200-239 mg/dL High: >or= 240 mg/dL Literature References: 1. Expert Panel on Integrated Guidelines for Cardiovascular Health and Risk Reduction in Children and Adolescents. Pediatrics 2011;128:S213 2. NCEP Expert Panel. Circulation 2004;110:227 Current Interpretive Data was last revised on 2018. Testing performed by: [address] [address] Triglycerides 113 <=149 mg/dL DAVID Comment: Interpretive Data Ages < or = 9 years Acceptable: <75 mg/dL Borderline high: 75-99 mg/dL High: >or= 100 mg/dL Ages 10 to 20 years Acceptable: <90 mg/dL Borderline high: 90-129 mg/dL High: >or= 130 mg/dL Ages > or = 20 years Desirable: <150 mg/dL Borderline high: 150-199 mg/dL High: 200-499 mg/dL Very high: >or= 499 mg/dL Literature References: 1. Expert Panel on Integrated Guidelines for Cardiovascular Health and Risk Reduction in Children and Adolescents. Pediatrics 2011;128:S213 2. NCEP Expert Panel. Circulation 2004;110:227 Current Interpretive Data was last revised on 2018. Testing performed by: [address] [address] HDL 54 >=40 mg/dL DAVID Comment: Interpretive Data Ages < or = 19 years Acceptable: >45 mg/dL Borderline low: 40-45 mg/dL Low: <40 mg/dL Ages > or = 20 years Desirable: >or= 60 mg/dL Low: <40 mg/dL Literature References: 1. Expert Panel on Integrated Guidelines for Cardiovascular Health and Risk Reduction in Children and Adolescents. Pediatrics 2011;128:S213 2. NCEP Expert Panel. Circulation 2004;110:227 Current Interpretive Data was last revised on 2018. Testing performed by: [address] [address] LDL, calculated 72 <=129 mg/dL DAVID Comment: Interpretive Data Ages < or = 19 years Acceptable: <110 mg/dL Borderline high: 110-129 mg/dL High: >or= 130 mg/dL Ages > or = 20 years Optimal: <100 mg/dL Near optimal: 100-129 mg/dL Borderline high: 130-159 mg/dL High: >160 mg/dL Literature References: 1. Expert Panel on Integrated Guidelines for Cardiovascular Health and Risk Reduction in Children and Adolescents. Pediatrics 2011;128:S213 2. NCEP Expert Panel. Circulation 2004;110:227 Current Interpretive Data was last revised on 2018. Testing performed by: [address] [address] Non-HDL Cholesterol 95 mg/dL DAVID LAND Comment: Interpretive Data Ages < or = 19 years Acceptable: <120 mg/dL Borderline high: 120-144 mg/dL High: >145 mg/dL Ages > or = 20 years When triglycerides are >200 mg/dL, Non-HDL cholesterol is a secondary target of therapy with treatment goals that are 30 mg/dL greater than the LDL cholesterol target. Literature References: 1. Expert Panel on Integrated Guidelines for Cardiovascular Health and Risk Reduction in Children and Adolescents. Pediatrics 2011;128:S213 2. NCEP Expert Panel. Circulation 2004;110:227 Current Interpretive Data was last revised on 2018. Testing performed by: [address] [address] Chol/HDL ratio 3 DAVID Comment:Testing performed by : [address] [address] Blood 05/01/2024 8:13 AM CDT 05/01/2024 12:51 PM CDT us Park [facility] BLOOD ORDERABLES Final Res ult [id number] [address] [facility] Department [place] [address] * HM PAP SMEAR (05/24/2023) SCRIBED Pap test normal us Historical Provider HEALTH MAINTENANCE Final Result * Colonoscopy (04/12/2021) Anatomical Region Laterality Modality Other us Historical Provider ENDOSCOPY PROCEDURES Paulina l Result from Last 3 Months or Most Recently Relevant to Health Maintenance Insurance ANTHEM ACCESS CHOICE ANTHEM ACCESS CHOICE Care Teams 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
--- OUTSIDE RECORDS SUMMARY | 2025-07-11 13:35 | XMS_ITS | Patient Health Record ---
Author Organization [facility] Address [address] [place] [address] Care Team Providers Care Appeals And Generalist Clerk Name Role Phone Sanjiv Ochoa Primary Care Provider [phone] Allergies No Known Allergies Results Component Value Reference Range Notes *Influenza and SARS Antigen STEPHEN (Lucy) Reviewed date:07/08/2025 12:04:32 PM Interpretation: Performing Lab: Notes/Report: [id number] ([id number]), [facility] [employer] [place] Notes: Walk Away Mode Flu A negative Negative Flu B negative Negative SARS-CoV-2 negative Negative Reason For Referral No Information Medications Medication SIG (Take, Route, Frequency, Duration) Notes Start Date End Date Status Fluticasone Propionate 50 MCG/ACT 1-2 sprays in each nostril Nasally Once a day for 30 days 07/08/2025 Active Atorvastatin Calcium Active Social History Tobacco Use: Social History Observation Description Date Details (start date - stop date) Never Smoker NA - NA Tobacco Control Question Answer Notes Tobacco use: Nonsmoker Vital Signs Heart Rate 100 /min 07/08/2025 Temperature 98.1 degrees Fahrenheit 07/08/2025 Respiratory Rate 14 /min 07/08/2025 Height-cm 162.56 cm 07/08/2025 Oximetry 99 % 07/08/2025 Blood pressure diastolic 85 mm Hg 07/08/2025 Weight-kg 94.35 kg 07/08/2025 Height 64 in 07/08/2025 Blood pressure systolic 131 mm Hg 07/08/2025 Weight 208 lbs 07/08/2025 BMI 35.7 kg/m2 07/08/2025 Encounters Encounter Location Date Provider Diagnosis [facility] [address] [place] [address] 07/08/2025 Sanjiv Ochoa Body aches R52 and Viral upper respiratory infection J06.9 Assessments Encounter Date Diagnosis (ICD Code) Assessment Notes Treatment Notes Treatment Clinical Notes Section Notes 07/08/2025 Body aches (ICD-10 - R52) 07/08/2025 Viral upper respiratory infection (ICD-10 - J06.9) your symptoms are consistent with a viral upper respiratory infection. This may also be the beginning stages of a sinus infection, recommend treating this with fluids, rest, and [id number] medications at this time. Fluticasone 2 sprays per nostril once daily can be helpful. You can continue to take the azelastine evenings. Mucinex is helpful in thinning out the mucus. I would recommend Tylenol ibuprofen as needed for any aches or pains. Please follow up with me for any worsening symptoms or if you are not feeling better by next week. The cough may take 4-6 weeks to fully resolve. Plan Of Treatment No Information Insurance Providers Payer Name Payer Address Payer Phone Subscriber Number Group Number Insured Name Patient Relationship to Insured Coverage Start Date Coverage End Date [employer] [address] [place] [address] [id number] Rehana Kimball Self - patient is the insured 4 Medical (General) History Medical History History ICD Code Anxiety Arthritis diabetes type 2 high blood pressure high cholesterol
--- OUTSIDE RECORDS SUMMARY | 2025-07-11 13:35 | XMS_ITS | Patient Health Record ---
Author Organization 1 OF Arik [facility] Address [address] [place] [address] Care Team Providers Care Director Power Name Role Phone Park Brunner Primary Care Provider Liliana Gould Unavailable [phone] Allergies No Known Allergies Reason For Referral No Information Medications Medication SIG (Take, Route, Frequency, Duration) Notes Start Date End Date Status Losartan Potassium 100 MG Oral; Duration: 90 Days Active metFORMIN HCl Active Ozempic (0.25 or 0.5 MG/DOSE) 2 MG/3ML Subcutaneous; Duration: 28 Days Active amLODIPine Besylate 5 MG Oral; Duration: 90 Days Active Atorvastatin Calcium 40 MG Oral; Duration: 90 Days Active Social History Tobacco Use: Social History Observation Description Date Details (start date - stop date) Never Smoker NA - NA Tobacco Control (Standard) Question Answer Notes Tobacco use: Nonsmoker Problems Problem Type SNOMED Code ICD Code Onset Dates Problem Status W/U Status Risk Notes Problem Type 2 diabetes mellitus without complication, without long-term current use of insulin (E11.9) Active confirmed Plan Of Treatment No Information Insurance Providers Payer Name Payer Address Payer Phone Subscriber Number Group Number Insured Name Patient Relationship to Insured Coverage Start Date Coverage End Date [facility] [address] [place] [address] [id number] Rehana Kimball Self - patient is the insured Medical (General) History Medical History History ICD Code hypertension, diabetes, High cholesterol
--- OUTSIDE RECORDS SUMMARY | 2025-07-11 13:35 | XMS_ITS ---
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 0 ; Type 2 diabetes mellitus without complication, without long-term current use of insulin E11.9 ; Onychodystrophy L60.3 ; Pain around toenail, right foot M79.674 and Pain around toenail, left foot M79.675 Assessments Encounter Date Diagnosis (ICD Code) Assessment Notes Treatment Notes Treatment Clinical Notes Section Notes 03/27/2025 Ingrown toenail (ICD-10 - L60.0) Patient visit today included a review of medical history, review of systems, physical exam and discussion of exam findings, and discussion of diagnoses and treatment options. Discussed ingrown toenail condition and explained in detail conservative and surgical options of care including debridement / slant back procedure vs nail avulsion vs matrixectomy. Discussed pros and cons of each procedure including temporary relief vs more permanent relief with matrixectomy procedure but longer healing time. Patient requested only debridement / slant back procedure today w/o local anesthesia. Patient understands this procedure will likely provide only temporary relief and was encouraged to consider avulsion or matrixectomy if condition recurs. 03/27/2025 Type 2 diabetes mellitus without complication, without long-term current use of insulin (ICD-10 - E11.9) Diabetic foot education was discussed including the nature of increased risk of developing foot problems due to the damage nerves and vessels of the feet caused by diabetes. The importance of daily self foot exams was stressed. Additionally, the patient was encouraged to control the blood sugar as well as possible and I explained the direct correlation between the incidence of diabetic foot complications and how well the blood sugar is controlled. I encouraged the patient to walk for exercise to help improve circulation to the feet as well as to help control excess blood sugar which I explained may also help to reduce or slow the progression of neuropathy symptoms. Additionally I recommended daily application of lotion to the feet to keep skin well hydrated. Advised to avoid walking w/o shoes on and discussed the importance of wearing properly fitted and supportive shoes and how wearing a shoe that does not fit properly can lead to blisters, open sores, infections and amputation. Literature regarding diabetic foot care was dispensed 03/27/2025 Onychodystrophy (ICD-10 - L60.3) 03/27/2025 Pain around toenail, right foot (ICD-10 - M79.674) 03/27/2025 Pain around toenail, left foot (ICD-10 - M79.675) Plan Of Treatment Treatment Notes Assessment Notes Ingrown toenail Patient visit today included a review of medical history, review of systems, physical exam and discussion of exam findings, and discussion of diagnoses and treatment options. Discussed ingrown toenail condition and explained in detail conservative and surgical options of care including debridement / slant back procedure vs nail avulsion vs matrixectomy. Discussed pros and cons of each procedure including temporary relief vs more permanent relief with matrixectomy procedure but longer healing time. Patient requested only debridement / slant back procedure today w/o local anesthesia. Patient understands this procedure will likely provide only temporary relief and was encouraged to consider avulsion or matrixectomy if condition recurs. Type 2 diabetes mellitus wit hout complication, without long-term current use of insulin Diabetic foot education was discussed including the nature of increased risk of developing foot problems due to the damage nerves and vessels of the feet caused by diabetes. The importance of daily self foot exams was stressed. Additionally, the patient was encouraged to control the blood sugar as well as possible and I explained the direct correlation between the incidence of diabetic foot complications and how well the blood sugar is controlled. I encouraged the patient to walk for exercise to help improve circulation to the feet as well as to help control excess blood sugar which I explained may also help to reduce or slow the progression of neuropathy symptoms. Additionally I recommended daily application of lotion to the feet to keep skin well hydrated. Advised to avoid walking w/o shoes on and discussed the importance of wearing properly fitted and supportive shoes and how wearing a shoe that does not fit properly can lead to blisters, open sores, infections and amputation. Literature regarding diabetic foot care was dispensed Next Appt Details Follow Up: 1 Year,prn, Reaso n: Procedure Notes * Category Sub-Category Detail Notes PALLIATIVE FOOT CARE: Nail debride (56290): Slan t back debridement of the bilateral hallux nails. Dystrophic nail trim (G0127) All dystrop hic nails reduced in length and thickness with curettage of debris from nail margins as needed Progress Notes * Rehana KIMBALL MDOB:[birth year] (54 yo F)Acc No.[id number]:03/27/2025 Progress Note Patient: Papa ESTRELLAASHLEYQuintonRehana Papa Provider: Lorenza Medina DPM :1970 A ge:54 Y S ex:Female Date:03/27/2025 Address:[facility] [address], [facility] Pcp:JANET Duarte Subjective: * Chief Complaints: * 1 . DFE (Diabetic foot eval). * HPI: Papa Troy assisting with visit:: HPI/Rooming: Juwan burrell reason for visit:: Diabetic Foot Care: [age] y/o diabetic female RTO for diabetic foot care., Patient reports no acute issues with nails or calluses today.. * Medical History: Objective: * Vitals: * Examination: G eneral Examination: Constitutional / Appearance: N o acute distress , Well nourished, Appropriate personal hygiene. Mental status: C ooperative, Oriented to person, place and time, Mood and affect: normal, Judgement and intellect: normal with appropriate response to questions. Shoes today: S lides. L ower Extremity VASCULAR: : Pulses: D P and PT pulses, palpable, bilateral. Temperature gradient: w arm from proximal to distal, bilateral. Pedal hair: p resent, bilateral. Capillary refill at distal toes less than 3 seconds, bilateral. L ower Extremity DERM: : Skin: w ell hydrated , no suspicious lesions, without interdigital maceration, bilateral. Nails: T he bilateral hallux nails are elongated, slightly thickened, Incurvated, with significant pain noted. R emaining nails appear elongated and dystrophic with abnormal shape, periungual debris, subungual hyperkeratosis and discomfort with palpation.. L ower Extremity NEURO: : General sensation appears i ntact, bilateral. Muscle tone w ithin normal limits, bilateral. Monofilament test (10 gram pressure) E xam of 04/25/2024: revealed intact sensation to, entire foot, bilateral. Vibration perception: E xam of 04/25/2024: n oted intact per evaluation with 128Hz tuning fork applied to distal hallux compared to ipsilateral medial malleolus @ bilateral feet. L ower Extremity MSK: : Gait Gait unremarkable with normal posture, propulsion and balance. Muscle strength: 5 /5, all 4 quadrants tested, bilateral.? Left lower extremity inspection and palpation: N o palpable masses or nodules noted. No pain with palpation along the foot and ankle. Adequate range of motion noted to the joints.. Right lower extremity inspection and palpation: N o palpable masses or nodules noted. No pain with palpation along the foot and ankle. Adequate range of motion noted to the joints.. Assessment: * Assessment: 1. I ngrown toenail - L60.0 2 . T ype 2 diabetes mellitus without complication, without long-term current use of insulin - E11.9 (Primary) 3 . O nychodystrophy - L60.3 4 . P ain around toenail, right foot - M79.674 5 . Pain around toenail, left foot - M79.675 Plan: * Treatment: 2. I ngrown toenail Notes: Patient visit today included a review of medical history, review of systems, physical exam and discussion of exam findings, and discussion of diagnoses and treatment options. Discussed ingrown toenail condition and explained in detail conservative and surgical options of care including debridement / slant back procedure vs nail avulsion vs matrixectomy. Discussed pros and cons of each procedure including temporary relief vs more permanent relief with matrixectomy procedure but longer healing time. Patient requested only debridement / slant back procedure today w/o local anesthesia. Patient understands this procedure will likely provide only temporary relief and was encouraged to consider avulsion or matrixectomy if condition recurs. * Procedures: P ALLIATIVE FOOT CARE:: Nail debride (83638): S lant back debridement of the bilateral hallux nails.. Dystrophic nail trim (G0127) A ll dystrophic nails reduced in length and thickness with curettage of debris from nail margins as needed. * Procedure Codes: 1 1720 DEBRIDE NAIL, 1-5, G0127 TRIMMING DYSTROPHIC NAILS ANY #, Modifiers: 59 , 3044F HG A1C LEVEL LT 7.0% * Follow Up: 1 Year,prn * Images: * Electronic signature of Kylie Medina DPM on 07/11/2025 at 01:35 PM CDT Sign off status: Pending * Provider: Lorenza Medina DPM Date: 0 03/27/2025 Generated for Matthias fernandez/Mynor/Saray on: 0 07/11/2025 01:35 PM CDT History and Physical Notes * HPI (History of Present Illness) Category Sub-Category Detail Notes Category Not es Primary reason for visit: Diabetic Foot Care: 54 y/o diabetic female RTO for diabetic foot care., Patient reports no acute issues with nails or calluses today. MA assisting with visit: HPI/Rooming: Wojciech Examination Category Sub-Category Detail Notes Category Not es General Examination Mental status: Cooperative, Oriented to person, place and time, Mood and affect: normal, Judgement and intellect: normal with appropriate response to questions Shoes today: Slides Constitutional / Appearance: No acute di stress , Well nourished, Appropriate personal hygiene Lower Extremity VASCULAR: Pulses: DP and PT pulse s, palpable, bilateral Temperature gradient: warm from proximal to distal, bilateral Pedal hair: present, bilateral Capillary refill at distal toes less shelly n 3 seconds, bilateral Lower Extremity NEURO: Monofilament test (10 gram pressure) Exam of 04/25/2024: revealed intact sensation to, entire foot, bilateral Vibration perception: Exam of 04/25/2024 : noted intact per evaluation with 128Hz tuning fork applied to distal hallux compared to ipsilateral medial malleolus @ bilateral feet General sensation appears intact, bilate ral Muscle tone within normal limits , bilateral Lower Extremity MSK: Muscle strength: 5/5, all 4 quadr ants tested, bilateral Left lower extremity inspect ion and palpation: No palpable masses or nodules noted. No pain with palpation along the foot and ankle. Adequate range of motion noted to the joints. Right lower extremity inspec tion and palpation: No palpable masses or nodules noted. No pain with palpation along the foot and ankle. Adequate range of motion noted to the joints. Gait Gait unremarkable wi th normal posture, propulsion and balance Lower Extremity DERM: Skin: well hydra hakeem , no suspicious lesions, without interdigital maceration, bilateral Nails: The bilateral hallux nails are elongated, slightly thickened, Incurvated, with significant pain noted. Remaining nails appear elongated and dystrophic with abnormal shape, periungual debris, subungual hyperkeratosis and discomfort with palpation.
== END 2025-07-11 13:33 | disposition home or self-care (01) ==
LOC: ANHAUDIO 13:33
PROVIDERS: PCP Physician Assistant; Visit Provider Otolaryngology
DX: H90.6 Mixed conductive and sensorineural hearing loss, bilateral (principal); J32.2 Chronic ethmoidal sinusitis
CPT/HCPCS: 92557; 92567